=== PATIENT | female | born 1990 | race American Indian/Alaskan Native ===

== ENCOUNTER 2020-05-22 02:53 | Emergency (ER) | payer SELFPAY ==
[2020-05-22] MEDS ORDERED: ACETAMINOPHEN 325 MG TAB PO PRN (03:01)
[2020-05-22] MEDS ORDERED: MAGNESIUM HYDROXIDE (MOM) ORAL LIQD UDC PO PRN (03:01)
[2020-05-22] MEDS ORDERED: ALUM-MAG HYDROXIDE-SIMETHICONE 200-200-20MG/5ML ORAL LIQD 30 ML PO PRN (03:01)
--- NOTE | 2020-05-22 03:09 | Emergency Department Report ---
<SHEREEN SRINIVASAN - Last Filed: 05/22/20 03:18> ED Psych HPI - General Stated Complaint: MH EVAL Time Seen by Provider: 05/22/20 03:01 Source: patient, EMS Limitations: Other (patrient refuses to give hx) - History of Present Illness Initial Comments: CC: "She is psychotic." HPI: THis is a 30 yo female who presents via EMS. EMS informed staff that patient is "psychotic". 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 Patient refuses to answers my questions. She is currently pretending to be asleep. I came to patient's room immediately after EMS departed. MD Complaint: other (patient presents via EMS for possible psychosis) -: unknown Associated Psychiatric Symptoms: other (abnormal behavior) Improves With: none Worsens With: none Treatments Prior to Arrival: other (transport via EMS) ED Review of Systems Comment: Unobtainable due to pts medical conditions (patient will not cooperative with hx) ED Past Medical Hx - Past Medical History Additional medical history: unknown - Surgical History Additional Surgical History: unknown ED Physical Exam - General Limitations: Other (uncooperative, abnormal behavior) General appearance: alert, in no apparent distress, other (laying in position, dirty disheveled clothing, poor hygiene) - Head Head exam: Present: atraumatic, normocephalic - Eye Eye exam: Present: normal appearance. Absent: scleral icterus, conjunctival injection - ENT ENT exam: Present: mucous membranes moist - Neck Neck exam: Present: normal inspection, full ROM - Respiratory Respiratory exam: Present: normal lung sounds bilaterally. Absent: respiratory distress, wheezes, rales, rhonchi - Cardiovascular Cardiovascular Exam: Present: regular rate, normal rhythm, normal heart sounds. Absent: systolic murmur, diastolic murmur, rubs, gallop - GI/Abdominal GI/Abdominal exam: Present: soft, normal bowel sounds. Absent: distended, ten derness, guarding, rebound - Extremities Exam Extremities exam: Present: normal inspection - Neurological Exam Neurological exam: Present: other (labile behavior) - Psychiatric Psychiatric exam: Present: flat affect - Skin Skin exam: Present: warm, dry, intact, normal color. 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 ED Medical Decision Making - Medical Decision Making This is a 30 yo female with hx of mental health disorder according to EMS. Patient is exhibiting bizarre, labile behavior in the ED. She spoke to nursing staff upon arrival. She currently refuses to speak to this provider. She is medically clear for psychiatric care. Awaiting treatment recommendations from psychiatry team ED Disposition Clinical Impression: Mental health assessment declined Disposition: DC-01 TO HOME OR SELFCARE Condition: Stable Additional Instructions: I am giving you a referral for a local primary care clinic, [facility]. I have also given you a referral for the [facility]. Return to the emergency department if you change your mind about further evaluation, or with any concerns or acute distress. Referrals: [facility]IMARY [facility] [Primary Care Provider] - 2-3 Days [facility] [Provider Group] - 3-5 Days [facility] [Outside] - 3-5 Days <PINEDA LAURA - Last Filed: 05/22/20 13:58> ED Review of Systems ROS: Stated complaint: MH EVAL Other details as noted in HPI ED Course Vital Signs 05/22/20 04:25 Temperature 97.6 F Pulse Rate 70 Respiratory 18 Rate Blood Pressure 109/76 [Left] O2 Sat by Pulse 100 Oximetry ED Medical Decision Making - Medical Decision Making This patient was brought to my attention for evaluation of her disposition from the emergency department. The patient came in last night and was apparently exhibiting some bizarre behavior. She was refusing to speak to the ER provider at that time and has been refusing to provide blood or urine samples for a medical clearance. She is refusing a mental health evaluation. I went in and and spoke with the patient who was easily arousable, alert, oriented. She is AAO x3 to person, place, time. She denies any suicidal or homicidal ideations. At the time of my examination she is not exhibiting any acute psychosis. There was no previous 1013 or ED hold filled out on this patient. Based on my interaction with her she has not met criteria for involuntary inpatient stabilization. She will be discharged to follow-up with primary care and psychiatry. She has been instructed to return to the emergency department with any thoughts of harming herself or others, or with any acute distress. Critical Care Time: No Critical care attestation.: If time is entered above; I have spent that time in minutes in the direct care of this critically ill patient, excluding procedure time. ED Disposition Is pt being admited?: No
[2020-05-22 04:44] VITALS: BP 109/76
== END 2020-05-22 14:02 | disposition home or self-care (01) ==
LOC: ED 02:53
DX: R46.89 Other symptoms and signs involving appearance and behavior (principal)